=== PATIENT | female | born 1990 | race Caucasian/White ===

== ENCOUNTER 2019-02-24 13:37 | Emergency (ER) | payer SELFPAY ==
[~2019-02-24] VITALS: Ht 162.6 cm; Wt 90.7 kg
[~2019-02-24 13:37] MED LIST: CITA20TA9 PO; NAPR-243 PO; SULF1TAB38 PO; TRM50T PO
[2019-02-24] MEDS ORDERED: KETOROLAC 30 MG/ML VIAL IM ONE (14:30)
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
[2019-02-24] MEDS ORDERED: NAPR-1071 PO (14:45)
[2019-02-24] MEDS ORDERED: ACHD5005 PO (14:45)
--- OUTSIDE RECORDS SUMMARY | 2019-02-24 14:47 | XMS REPORT | Continuity of Care Document ---
Author Organization Unknown Address Unknown Allergies Active Description Code Type Severity Reaction Onset Reported/Identified Relationship to Patient Clinical Status Yes No Known Drug Allergies [id number] Drug Allergy Unknown N/A 02/02/2016 Medications There is no data. Problems Date Dx Coded Attending Type Code Diagnosis Diagnosed By 02/02/2016 MARGUERITE FAYE DO Ot R19.7 DIARRHEA, UNSPECIFIED 02/02/2016 MARGUERITE FAYE DO Ot Z01.818 ENCOUNTER FOR OTHER PREPROCEDURAL EXAMIN 02/07/2016 MARGUERITE FAYE DO Ot R10.31 RIGHT LOWER QUADRANT PAIN 02/07/2016 MARGUERITE FAYE DO Ot R19.7 DIARRHEA, UNSPECIFIED 02/08/2016 MARGUERITE FAYE DO Ot R10.31 RIGHT LOWER QUADRANT PAIN 02/08/2016 MARGUERITE FAYE DO Ot R19.7 DIARRHEA, UNSPECIFIED Procedures There is no data. Results There is no data. Encounters ACCT No. Visit Date/Time Discharge Status Pt. Type Provider Facility Loc./Unit Complaint [id number] 02/07/2016 09:50:00 02/07/2016 11:55:00 DIS Outpatient MARG[facility]E [facility] [id number] 02/02/2016 05:40:00 02/02/2016 10:06:00 DIS Outpatient MARGUERITE FAYE DO Via [facility] PREOP
--- OUTSIDE RECORDS SUMMARY | 2019-02-24 14:47 | XMS REPORT | Continuity of Care Document ---
Author Organization Unknown Address Unknown Allergies Active Description Code Type Severity Reaction Onset Reported/Identified Relationship to Patient Clinical Status Yes No Known Drug Allergies [id number] Drug Allergy Unknown N/A 02/02/2016 Medications There [...] Status Pt. Type Provider Facility Loc./Unit Complaint [id number] 02/07/2016 09:50:00 02/07/2016 11:55:00 DIS Outpatient MARGUERITE FAYE DO Via [facility] [id number] 02/02/2016 05:40:00 02/02/2016 10:06:00 DIS Outpatient MARGUERITE FAYE DO Via [facility] PREOP
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
[2019-02-24 15:44] VITALS: BP 145/98
== END 2019-02-24 15:44 | disposition home or self-care (01) ==
LOC: EDUNIT# 13:37 → ER 13:39
DX: S80.12XA Contusion of left lower leg, initial encounter (principal); S80.02XA Contusion of left knee, initial encounter; F17.200 Nicotine dependence, unspecified, uncomplicated; V86.55XA Driver of 3- or 4- wheeled all-terrain vehicle (ATV) injured in nontraffic accident, initial encounter
CPT/HCPCS: 73562; 84703

== ENCOUNTER → 2019-03-16 | Outpatient (CLI) | payer OTHER ==
[~2019-03-16] MED LIST changes: +ACHD5005 PO; +NAPR-1071 PO
--- NOTE | 2019-03-16 21:00 | Diagnostic Imaging Report ---
EXAMINATION: Magnetic resonance imaging of the left knee without intravenous contrast DATE: March 16, 2019. COMPARISON: Left knee radiographs February 24, 2019. INDICATION: 28-year-old female, left knee pain and swelling. TECHNIQUE: Multiplanar, multisequence non contrast enhanced MR imaging was accomplished. FINDINGS: MENISCI: The medial meniscus is intact. The lateral meniscus is intact. LIGAMENTS AND TENDONS: There is a complete tear of the anterior cruciate ligament. The posterior cruciate ligament is intact. There is a low-grade sprain injury of the superficial component of the medial collateral ligament. The iliotibial band, mid third lateral capsular ligament, fibular collateral ligament, biceps femoris tendon and conjoined tendon are intact. The quadriceps tendon and patella ligament are intact. JOINT: The articular cartilage surfaces are intact. There is no knee joint effusion, prominent synovitis, or intra-articular body. BONE: There is edema-like signal in the posterior aspect of the lateral tibial plateau and adjacent lateral femoral condyle as well as a smaller focal area of edema-like signal in the posterior aspect of the medial tibial plateau. There is no identified fracture line. These are compatible with bone contusions. There is also a bone contusion in the region of the femoral attachment site of the superficial component of the medial collateral ligament. BURSAE AND SOFT TISSUES: There is no Fulton's cyst. There is mild nonspecific prepatellar subcutaneous edema. IMPRESSION: 1. Complete tear of the anterior cruciate ligament. Intact posterior cruciate ligament. Low grade sprain injury of the superficial component of the medial collateral ligament complex. 2. No discretely identified meniscal tear. 3. Bone contusions of the posterior aspects of the lateral tibial plateau and medial tibial plateau as well as the lateral femoral condyle and medial femoral condyle in the region of the attachment site of the superficial component of the medial collateral ligament complex. 4. Intact articular cartilage. No knee joint effusion. Dictated by: Dictated on workstation # [id number]
== END ==
LOC: RAD 14:26
PROVIDERS: ATTEND Orthopaedic Surgery
DX: S83.512A Sprain of anterior cruciate ligament of left knee, initial encounter (principal); S83.412A Sprain of medial collateral ligament of left knee, initial encounter; S80.12XA Contusion of left lower leg, initial encounter; S70.12XA Contusion of left thigh, initial encounter
CPT/HCPCS: 73721

== ENCOUNTER 2019-08-23 16:07 | Emergency (ER) | payer OTHER ==
[~2019-08-23] VITALS: Ht 162 cm; Wt 88.5 kg
[2019-08-23] MEDS ORDERED: LIDOCAINE 1% INJ 20 ML 20 ML VIAL INJ ONE (16:30)
[2019-08-23] MEDS ORDERED: KETOROLAC 60 MG/2 ML VIAL IM ONE (16:30)
[2019-08-23] MEDS ORDERED: TRIM/SULFAMETH 160/800 (SEPTRA DS) TAB PO ONE (16:30)
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
[2019-08-23 16:57] LABS: BASOPHILS % (AUTO) 0 % (0-10); EOSINOPHILS # (AUTO) 0.1 10^3/uL (0.0-0.3); EOSINOPHILS % (AUTO) 1 % (0-10); HEMATOCRIT 36 % (35-52); HEMOGLOBIN 11.7 G/DL (11.5-16.0); LYMPHOCYTES # (AUTO) 2.9 X 10^3 (1.0-4.0); LYMPHOCYTES % (AUTO) 24 % (12-44); MEAN CORPUSCULAR HEMOGLOBIN 27 PG (25-34); MEAN CORPUSCULAR HGB CONC 32 G/DL (32-36); MEAN CORPUSCULAR VOLUME 84 FL (80-99); MEAN PLATELET VOLUME 10.4 FL (7.4-10.4); MONOCYTES # (AUTO) 0.8 X 10^3 (0.0-1.0); MONOCYTES % (AUTO) 6 % (0-12); NEUTROPHILS # (AUTO) 8.2 X 10^3 (1.8-7.8); NEUTROPHILS % (AUTO) 69 % (42-75); PLATELET COUNT 239 10^3/uL (130-400); RED CELL DISTRIBUTION WIDTH 13.7 % (10.0-14.5)
[2019-08-23] MEDS ORDERED: SULF1TAB35 PO (17:06)
[2019-08-23 17:12] VITALS: BP 127/80
== END 2019-08-23 17:12 | disposition home or self-care (01) ==
LOC: EDUNIT# 16:07 → ER 16:09
DX: N60.01 Solitary cyst of right breast (principal); F17.200 Nicotine dependence, unspecified, uncomplicated
CPT/HCPCS: 36415; 85025

== ENCOUNTER 2020-05-15 14:57 | Emergency (ER) | payer SELFPAY ==
[~2020-05-15] VITALS: Ht 173 cm; Wt 88.5 kg
[~2020-05-15 14:57] MED LIST changes: +SULF1TAB35 PO
--- OUTSIDE RECORDS SUMMARY | 2020-05-15 15:02 | XMS REPORT | Continuity of Care Document ---
Author Author [facility] Organization [facility] Address Unknown Phone Unavailable Care Team Providers Care Activities Concierge Name Role Phone ZUHAIR MENDOZA MD PP Insurance Providers Payer Name Policy Number Subscriber Name Relationship Self Pay Hemant Clark 01 Self / Same As Patient Advance Directives Directive Response Recor ded Date Advance Directives N 8:39pm Health Care Power of Transitional Care Manager N 03/19/13 8:39pm Problems No Known Problems or Medical conditions. Social History History Response Recorde d Date/Time Alcohol Use Denies Use 0 03/19/13 8:39pm Recreational Drug Use N 03/19/13 8:39pm Sexually Transmitted Disease N 03/19/13 8:39pm HIV/AIDS N 03/19/13 8:39 pm Allergies, Adverse Reactions, Alerts Allergen Type Severity Reaction Last Updated No Known Drug Allergies 01/03/12 Medications Medication Dose Units Route Sig Qty Days Trimethoprim/Sulfamethoxazole (Bactrim Ds) 1 Ea PO BID 20 Tramadol HCl (Ultram) 50 Mg PO Q4-6HOURS PRN 20 Naproxen (Naprosyn) 1 Ea ch PO TID PRN 20 Immunizations Name Given Type Date of Influenza Vaccine 07/07/11 H Response Recorded Date/Time Status not known Unknown Results Test Date Result Interp. Ref. Range Ur Tricyclic Antidepressants Screen February 22, 2013 10:06pm NEGATIVE - Urine Amorphous Sediment February 22 3 10:06pm FEW ERNESTO URATES /LPF H - Urine Amphetamines Screen February 22 10:06pm NEGATIVE - Urine Bacteria February 22, 2013 10:06pm MODERATE /HPF H - Urine Barbiturates Screen February 22 10:06pm NEGATIVE - Urine Benzodiazepines Screen February 22, 2013 10:06pm NEGATIVE - Urine Bilirubin February 22, 2013 10:06pm NEGATIVE - Urine Casts February 22, 2013 10:06pm NONE /LPF - Urine Clarity February 22, 2013 10:06pm CLEAR - Urine Cocaine Screen February 22, 2013 10:06pm NEGATIVE - Urine Color February 22, 2013 10:06pm YELLOW - Urine Crystals February 22, 2013 10:06pm NONE /LPF - Urine Culture Indicated February 22, 2013 10:06pm YES - Urine Glucose (UA) February 22, 2013 10:06pm NEGATIVE - Urine Ketones February 22, 2013 10:06pm NEGATIVE - Urine Leukocyte Esterase February 22, 201 3 10:06pm TRACE H - Urine Methamphetamines Screen February 10:06pm NEGATIVE - Urine Mucus February 22, 2013 10:06pm NEGATIVE /LPF - Urine Nitrite February 22, 2013 10:06pm NEGATIVE - Urine Opiates Screen February 22, 2013 10:06pm NEGATIVE - Urine Phencyclidine Screen February 22, 2 013 10:06pm NEGATIVE - Urine Propoxyphene Screen February 22 13 10:06pm NEGATIVE - Urine Protein February 22, 2013 10:06pm NEGATIVE - Urine RBC February 22, 2013 10:06pm NONE /HPF - Urine Specific [place] February 22, 2013 10:06p m 1.015 L - Urine Squamous Epithelial Cells February 22, 2013 10:06pm 5-10 /HPF - Urine Urobilinogen February 22, 2013 10:06pm NORMAL MG/DL - Urine WBC February 22, 2013 10:06pm 2-5 /HPF - Urine pH February 22, 2013 10:06pm 7 - Urine Oxycodone Screen February 22, 2013 10:06p m NEGATIVE - Urine Methadone Screen February 22, 2013 10:06p m NEGATIVE - Urine Cannabinoids Screen February 22 13 10:06pm NEGATIVE - Urine Buprenorphine February 22, 2013 10:06pm NEGATIVE - Urine RBC (Auto) February 22, 2013 10:06pm NEGATIVE - Procedures Procedure Code Date Urine Culture 02/22/13 Encounters Encounter Location Date/ Time Departed Emergency Room [facility] 03/19/13 8:36pm
--- OUTSIDE RECORDS SUMMARY | 2020-05-15 15:02 | XMS REPORT | Continuity of Care Document ---
Author Author [facility] Organization [facility] Address Unknown Phone Unavailable Care Team Providers Care Gymnastic Coach Name Role Phone ZUHAIR MENDOZA MD PP Insurance Providers Payer Name Policy Number Subscriber Name Relationship Self Pay Karin Clark 01 Self / Same As Patient Advance Directives Directive Response Recor ded Date Advance Directives N 10:42pm Health Care Power of Tree And Shrub Technician N 02/17/13 10:42pm Problems No Known Problems or Medical conditions. Social History History Response Recorde d Date/Time Alcohol Use Occasionally Uses 02/17/13 10:42pm Recreational Drug Use N 02/17/13 10:42pm Allergies, Adverse Reactions, Alerts Allergen Type Severity Reaction Last Updated No Known Drug Allergies 01/03/12 Medications Medication Dose Units Route Sig Qty Days Tramadol HCl (Ultram) 50 Mg PO Q4-6HOURS PRN 20 Naproxen (Naprosyn) 1 Ea ch PO TID PRN 20 Immunizations Name Given Type Date of Influenza Vaccine 07/07/11 H Response Recorded Date/Time Status not known Unknown Results No Known Relevant Diagnostic Tests, Laboratory Data and/or Discharge Summary. Encounters Encounter Location Date/ Time Departed Emergency Room [facility] IS 02/17/13 10:37pm
--- OUTSIDE RECORDS SUMMARY | 2020-05-15 15:02 | XMS REPORT | Continuity of Care Document ---
Author Author [facility] Organization [facility] Address Unknown Phone Unavailable Care Team Providers Care Senior Peoplesoft Developer Name Role Phone ZUHAIR MENDOZA MD PP Insurance Providers Payer Name Policy Number Subscriber Name Relationship Self Pay Karin Clark 01 Self / Same As Patient Advance Directives Directive Response Recor ded Date Advance Directives N 6:27pm Health Care Power of Clammer N 07/20/13 6:27pm Problems No Known Problems or Medical conditions. Social History History Response Recorde d Date/Time Alcohol Use Occasionally Uses 07/20/13 6:27pm Recreational Drug Use N 07/20/13 6:27pm Sexually Transmitted Disease N 07/20/13 6:27pm HIV/AIDS N 07/20/13 6:27 pm Allergies, Adverse Reactions, Alerts Allergen Type Severity Reaction Last Updated No Known Drug Allergies 01/03/12 Medications Medication Dose Units Route Sig Qty Days No Active Prescriptions or Reported Medications Trimethoprim/Sulfamethoxazole (Bactrim Ds) 1 Ea PO BID 20 Tramadol HCl (Ultram) 50 Mg PO Q4-6HOURS PRN 20 Naproxen (Naprosyn) 1 Ea ch PO TID PRN 20 Immunizations Name Given Type Date of Influenza Vaccine 07/07/11 H Response Recorded Date/Time Status not known Unknown Results No Known Relevant Diagnostic Tests, Laboratory Data and/or Discharge Summary. Encounters Encounter Location Date/ Time Departed Emergency Room [facility] 07/20/13 6:18pm
--- OUTSIDE RECORDS SUMMARY | 2020-05-15 15:02 | XMS REPORT | Continuity of Care Document ---
Author Author [facility] Organization [facility] Address Unknown Phone Unavailable Care Team Providers Care Corporate Associate Attorney Name Role Phone ZUHAIR MENDOZA MD PP Insurance Providers Payer Name Policy Number Subscriber Name Relationship Self Pay Karin Clark 01 Self / Same As Patient Advance Directives Directive Response Recor ded Date Advance Directives N 10:42pm Health Care Power of Molder Operator N 02/17/13 10:42pm Problems No Known Problems [...] Encounter Location Date/ Time Departed Emergency Room [facility] IS 02/17/13 10:37pm
--- OUTSIDE RECORDS SUMMARY | 2020-05-15 15:03 | XMS REPORT | Continuity of Care Document ---
Author Author [facility] Organization [facility] Address Unknown Phone Unavailable Care Team Providers Care Human Performance Professor Name Role Phone ZUHAIR MENDOZA MD PP Insurance Providers Payer Name Policy Number Subscriber Name Relationship Self Pay Karin Clark 01 Self / Same As Patient Advance Directives Directive Response Recor ded Date Advance Directives N 10:42pm Health Care Power of Manager Sound N 02/17/13 10:42pm Problems No Known Problems [...] Type Date of Influenza Vaccine 07/07/11 H DTaP 02/22/13 A Response Recorded Date/Time Status not known Unknown Results No Known Relevant Diagnostic Tests, Laboratory Data and/or Discharge Summary. Encounters Encounter Location Date/ Time Departed Emergency Room [facility] 02/22/13 8:20pm
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
[2020-05-15] MEDS ORDERED: KETOROLAC 30 MG/ML VIAL IM ONE (16:15)
[2020-05-15] MEDS ORDERED: CYCL10TA9 PO (17:13)
[2020-05-15] MEDS ORDERED: PRD20T PO (17:13)
--- NOTE | 2020-05-15 17:13 | ED Back Pain ---
General Chief Complaint: Back Problems Stated Complaint: BACK PAIN Nursing Triage Note: C/O LOWER BACK PAIN STARTING LAST NIGHT Nursing Sepsis Screen: No Definite Risk Source of Information: Patient Exam Limitations: No Limitations History of Present Illness Date Seen by Provider: May 15, 2020 Time Seen by Provider: 05:57 Initial Comments This 30-year-old young lady presents to the emergency room with pain in the low er lumbar region and right SI joint region. She had a remote injury to her back in 2013 and has had a few episodes of pain exacerbation since then. Pain became severe yesterday. She has changed her sleeping patterns and pillows recently and wonders if that contributed. She denies any lower extremity weakness, paresthesias, saddle paresthesia, or bowel or bladder dysfunction. She has tried icy hot patches without relief. She rates her pain as a 5 when lying down and a 10 when standing up. Last menstrual period was 5 days ago and she denies . Allergies and Home Medications Allergies Coded Allergies: No Known Drug Allergies (Unverified , 02/24/19) Home Medications Cyclobenzaprine HCl 10 Mg Tablet, 10 MG PO Q8H PRN for SPASMS Prescribed by: PARIS GARCIA on 05/15/201712 Prednisone 20 Mg Tab, 20 MG PO DAILY Prescribed by: PARIS GARCIA on 05/15/20 171 Sulfamethoxazole/Trimethoprim 1 Each Tablet, 1 EACH PO BID WITH MEALS Prescribed by: RUDY PARR on 08/23/19 1706 Patient Home Medication List Home Medication List Reviewed: Yes Review of Systems Constitutional: no symptoms reported EENTM: no symptoms reported Respiratory: no symptoms reported Cardiovascular: no symptoms reported Gastrointestinal: no symptoms reported : No Musculoskeletal: see HPI Skin: no symptoms reported Psychiatric/Neurological: No Symptoms Reported Past Rahtoup-Gxghau-Powjjs Hx Past Med/Social Hx: Reviewed Nursing Past Med/Soc Hx Patient Social History Alcohol Use: Denies Use Recreational Drug Use: No Recent Foreign Travel: No Contact w/Someone Who Travel: No Recent Infectious Disease Expo: No Recent Hopitalizations: No Immunizations Up To Date Tetanus Booster (TDap): Less than 5yrs Date of Influenza Vaccine: Jul 07, 2011 Seasonal Allergies Seasonal Allergies: Yes Past Medical History Surgeries: Yes Breast, Orthopedic Respiratory: No Cardiac: No Neurological: No Female Reproductive Disorders: Denies Sexually Transmitted Disease: No HIV/AIDS: No Gastrointestinal: No Musculoskeletal: No Endocrine: No Cancer: No Psychosocial: No Integumentary: No Blood Disorders: No Physical Exam Vital Signs Vital Signs - First Documented 05/15/20 15:02 Temp 36.7 Pulse 99 Resp 18 B/P (MAP) 107/75 (86) Pulse Ox 97 Capillary Refill : Less Than 3 Seconds Height, Weight, BMI Height: 5'4.00" Weight: 200lbs. oz. 90.063770zx; 29.00 BMI Method:Stated General Appearance: No Apparent Distress, WD/WN HEENT: PERRL/EOMI, Normal ENT Inspection Neck: Normal Inspection Cardiovascular: Regular Rate, Rhythm, No Edema, No Murmur Respiratory: Lungs Clear, Normal Breath Sounds, No Accessory Muscle Use, No Respiratory Distress Gastrointestinal: Non Tender, Soft Back: Normal Inspection, Other (Tenderness around the L5-S1 area and right SI joint region) Neurologic/Psychiatric: Alert, Oriented x3, No Motor/Sensory Deficits, Normal Mood/Affect, e commerce retailer II-XII Norm as Tested Skin: Normal Color, Warm/Dry Progress/Results/Core Measures Results/Orders My Orders Orders - PARIS EDUARDO MD Ketorolac Injection (Toradol Injection) (05/15/20 16:15) Medications Given in ED Vital Signs/I&O 05/15/20 05/15/20 15:02 17:15 Temp 36.7 36.7 Pulse 99 99 Resp 18 18 B/P (MAP) 107/75 (86) 107/75 (86) Pulse Ox 97 97 Blood Pressure Mean: 86 Progress Progress Note : Progress Note Patient received toradol injection with significant relief. See discharge instructions. Departure Impression Primary Impression: Pain of right sacroiliac joint Disposition: HOME, SELF-CARE Condition: Improved Departure-Patient Inst. Decision time for Depature: 16:50 Referrals: NO,LOCAL PHYSICIAN (PCP/Family) Primary Care Physician Patient Instructions: Sacroiliac Joint Pain Add. Discharge Instructions: Try to manage your pain with ibuprofen up to 600 mg every 6 hours and Tylenol (acetaminophen) up to 1000 mg every 6 hours as needed. Avoid strenuous activity and heavy lifting until your pain has been resolved for a few days. Gentle stretching, especially of the calves and hamstrings may help reduce strain on your pelvis and help relieve pain. Follow-up with your primary care provider. Other nonmedicinal therapies may be discussed such as physical therapy, chiropractic manipulation, etc. If your pain is still severe tomorrow, you may start the steroids for further anti-inflammatory therapy and the cyclobenzaprine may be used for muscle strain or spasms. Return to care if you have worsening symptoms, especially if he develops true weakness in your legs, numbness in your legs, numbness in your groin, or difficulty controlling your bowels or bladder. All discharge instructions reviewed with patient and/or family. Voiced understanding. Scripts Cyclobenzaprine HCl (Cyclobenzaprine HCl) 10 Mg Tablet 10 MG PO Q8H PRN for SPASMS, #10 TAB 0 Refills Prov: PARIS EDUARDO MD 05/15/20 Prednisone (Prednisone) 20 Mg Tab 20 MG PO DAILY, #4 TAB 0 Refills Prov: PARIS EDUARDO MD 05/15/20 PARIS EDUARDO MD May 15, 2020 17:13
[2020-05-15 17:15] VITALS: BP 107/75
== END 2020-05-15 17:15 | disposition home or self-care (01) ==
LOC: EDUNIT# 14:57 → ER 14:58
DX: M53.3 Sacrococcygeal disorders, not elsewhere classified (principal)
CPT/HCPCS: 99281

== ENCOUNTER 2021-05-13 23:18 | Outpatient (CLI) | payer MEDICAID ==
[~2021-05-13] VITALS: Ht 160.2 cm; Wt 93.3 kg
[~2021-05-13 23:18] MED LIST changes: +CYCL10TA9 PO; +PRD20T PO; -SULF1TAB35 PO
[2021-05-13 23:30] VITALS: BP 114/66
--- NOTE | 2021-05-15 08:06 | Physician Query-Final Dx ---
Clinic Account Progress/Dx Physician Query: Please give diagnosis Please include # weeks gestation Date of Service May 13, 2021 at 23:18 MARIMAR MEYER May 15, 2021 08:06
== END 2021-05-14 00:10 ==
LOC: LDRP 23:18 → WSo 23:18
PROVIDERS: ATTEND Obstetrics & Gynecology
DX: O42.913 Preterm premature rupture of membranes, unspecified as to length of time between rupture and onset of labor, third trimester (principal); Z3A.31 31 weeks gestation of pregnancy
CPT/HCPCS: 99213

== ENCOUNTER 2021-06-02 17:45 | Outpatient (CLI) | payer MEDICAID ==
[~2021-06-02] VITALS: Ht 160 cm; Wt 95.6 kg
[2021-06-02 18:26] LABS: BILIRUBIN,URINE NEGATIVE (NEGATIVE); CLARITY,URINE SL CLOUDY; COLOR,URINE YELLOW; GLUCOSE, URINE (UA) NEGATIVE (NEGATIVE); KETONES,URINE NEGATIVE (NEGATIVE); LEUKOCYTE ESTERASE ,URINE NEGATIVE (NEGATIVE); NITRITE,URINE NEGATIVE (NEGATIVE); PH,URINE 6.5 (5-9); PROTEIN,URINE NEGATIVE (NEGATIVE)
[2021-06-02 18:32] LABS: AMORPHOUS SEDIMENT,UR MOD AMOR URATES /LPF; BACTERIA,URINE TRACE /HPF
[2021-06-02 18:35] VITALS: BP 112/68
[2021-06-02 18:36] VITALS: BP 122/68
[2021-06-02] MEDS ORDERED: D5 LR IV SOLUTION 1,000 ML IV SCH (19:30)
[2021-06-02 21:00] VITALS: BP 120/70
--- NOTE | 2021-06-05 10:13 | Physician Query-Final Dx ---
Clinic Account Progress/Dx Physician Query: Please give diagnosis Please include # weeks gestation Date of Service Jun 02, 2021 at 17:45 MARIMAR MEYER Jun 05, 2021 10:13
== END 2021-06-02 21:00 | disposition home or self-care (01) ==
LOC: LDRP 17:45 → WSo 17:45
PROVIDERS: ATTEND Obstetrics & Gynecology
DX: O26.899 Other specified pregnancy related conditions, unspecified trimester (principal); R10.9 Unspecified abdominal pain; Z3A.00 Weeks of gestation of pregnancy not specified
CPT/HCPCS: 81000; 87088

== ENCOUNTER 2021-06-26 07:00 | Inpatient (IN) | payer MEDICAID ==
[2021-06-26] VITALS (34 sets, daily range): BP systolic 97–137; BP diastolic 47–88
[~2021-06-26] VITALS: Ht 160 cm; Wt 96.2 kg
--- OUTSIDE RECORDS SUMMARY | 2021-06-26 07:14 | XMS REPORT ---
Author Author [facility] Address Unknown Phone Unavailable Care Team Providers Care Felt Tipping Machine Tender Name Role Phone CARLINEPATEL Unavailable PROBLEMS No Information ALLERGIES No Known Allergies ENCOUNTERS from 1991 to 2021-06-05 Encounter Location Date Provider Diagnosis [facility] [address] [facility] [id number] [place] [address] Dec, PATEL CROWLEY IMMUNIZATIONS Vaccine Route Administration Date Status TORADOL (IM) 60 MG/2ML (UP TO 15 MG) IM Intramuscular April 11 020 Administered SOCIAL HISTORY Sex Assigned At : Social History Observation Description Sex Assigned At Unknown Alcohol Screen (Audit-C) Question Answer Notes Did you have a drink containing alcohol in the past year? No Points 0 Interpretation Negative Cessation Question Answer Notes Date Tobacco Cessation Provided: 04/11/2020 PHQ2 Question Answer Notes In the last 2 weeks, how often have you had little interest or pleasure in doing things? Not at all In the last 2 weeks, how often have you been feeling down, depressed, or hopeless? Not at all Total PHQ2 Score 0 REASON FOR REFERRAL No Information VITAL SIGNS No information MEDICATIONS Medication SIG (Take, Route, Frequency, Duration) Notes Start Da te End Date Status Cephalexin 500 MG 1 capsule Orally Four times a day for 7 days Apr, Active Vitamin Active Amoxicillin-Pot Clavulanate 875-125 MG 1 tablet Orally every 12 hrs for 10 day(s) Apr, Active PROCEDURES No Information RESULTS No Results REASON FOR VISIT No Information MEDICAL (GENERAL) HISTORY Type Description Date Medical History depression Surgical History ACL repair left knee 05/2019 Goals Section No Information Health Concerns No Information MEDICAL EQUIPMENT No Information MENTAL STATUS No Information FUNCTIONAL STATUS No Information ASSESSMENTS No Information PLAN OF TREATMENT Medication Medication Name Sig Start Date Stop Date Cephalexin 500 MG 1 capsule Orally Four times a day for 7 days 2 0 Apr, 2021 Amoxicillin-Pot Clavulanate 875-125 MG 1 tablet Orally every 12 hrs for 10 day(s) 13 Apr, 2021 Insurance Providers Payer Name Payer Address Payer Phone Insured Name Patient Relati onship to Insured Coverage Start Date Coverage End Date [address] [facility] [phone] Karin Silva self
[2021-06-26] MEDS ORDERED: D5 LR IV SOLUTION 1,000 ML IV ONE (08:11)
[2021-06-26] MEDS ORDERED: OXYTOCIN PRE-MIX DRIP 500 ML IV SCH (08:15)
[2021-06-26 08:16] LABS: BASOPHILS % (AUTO) 0 % (0-10); EOSINOPHILS # (AUTO) 0.1 10^3/uL (0.0-0.3); EOSINOPHILS % (AUTO) 1 % (0-10); HEMATOCRIT 34 % (35-52); LYMPHOCYTES # (AUTO) 1.7 10^3/uL (1.0-4.0); LYMPHOCYTES % (AUTO) 19 % (12-44); MEAN CORPUSCULAR HEMOGLOBIN 29 pg (25-34); MEAN CORPUSCULAR HGB CONC 33 g/dL (32-36); MEAN CORPUSCULAR VOLUME 89 fL (80-99); MEAN PLATELET VOLUME 11.6 fL (9.0-12.2); MONOCYTES # (AUTO) 0.5 10^3/uL (0.0-1.0); MONOCYTES % (AUTO) 5 % (0-12); NEUTROPHILS # (AUTO) 6.7 10^3/uL (1.8-7.8); NEUTROPHILS % (AUTO) 74 % (42-75); PLATELET COUNT 194 10^3/uL (130-400)
[2021-06-26] MEDS: D5 LR IV SOLUTION 1,000 ML IV SCH ×2 (08:32→15:15)
[2021-06-26] MEDS ORDERED: BUTORPHANOL INJ 2 MG/ML (STADOL) VIAL IV ONE (11:15)
[2021-06-26] MEDS ORDERED: BUTORPHANOL INJ 2 MG/ML (STADOL) VIAL IV PRN (12:00)
[2021-06-26] MEDS ORDERED: PEDI1TAB35 PO (13:04)
[2021-06-26] MEDS ORDERED: BUTORPHANOL INJ 2 MG/ML (STADOL) VIAL ONE (14:20)
[2021-06-26] MEDS ORDERED: CITRIC ACID/SOB CIT (BICITRA) 30 ML UDC PO ONE (15:00)
[2021-06-26] MEDS ORDERED: METOCLOPRAMIDE INJ 10 MG/2 ML (REGLAN) IV ONE (15:00)
[2021-06-26] MEDS ORDERED: metroNIDAZOLE 500MG/100ML IVPB 100 ML IV ONE ×2 (15:00→15:30)
[2021-06-26] MEDS ORDERED: FAMOTIDINE 20MG/2ML IV (PEPCID) IV ONE (15:00)
[2021-06-26] MEDS ORDERED: LACTATED RINGERS 1,000 ML IV PRN ×2 (15:00)
[2021-06-26] MEDS ORDERED: CATHETER FLUSH 10 ML SYR IV PRN (15:00)
[2021-06-26] MEDS ORDERED: ceFAZolin 2 GM IV Premixed 50 ML IV ONE ×2 (15:00→16:15)
--- NOTE | 2021-06-26 15:08 | Progress Note ---
Standard Progress Note Progress Notes/Assess & Plan Date Seen by a Provider: Jun 26, 2021 Time Seen by a Provider: 15:05 Progress/Assessment & Plan Patient started on Pitocin about 8 AM. She made little or no progress through noon to 1:00. She continued on the Pitocin until approximately 230 at which point she decided she no longer wanted to be on the Pitocin. She was specifically requesting a . I did discuss with the patient that labor for first child in the latent phase can take 12 to 16 hours. She states she is unwilling to be subjected to contractions for that length of time. She is uncomfortable and discouraged. She did agree to continue on Pitocin until the rate has been up into the 30s+ milliliters per minute range and if she continues to failure to demonstrate progress then we would stop the Pitocin and proceed with . At this point the Pitocin has been discontinued. We are allowing time for the uterus to rest and recover and then we will proceed with delivery about 4 to 4:30 PM Vital Signs Date Time Temp Pulse Resp B/P (MAP) Pulse Ox O2 Delivery O2 Flow Rate FiO2 06/26/21 08:33 36.4 88 18 100 Room Air Patient's vital signs are stable she is afebrile Physical exam is unchanged. Pelvic exam per the labor delivery nurse shows a cervix 1 cm dilated 68% effaced with no change throughout the day Assessment and plan 38-week with history of gestational diabetes and failure to make progress in labor. Patient has specifically requested delivery at this point I do not think that is inappropriate we will stop her Pitocin and proceed with about 430 today JOAQUIN SANTOS MD Jun 26, 2021 15:08
[2021-06-26] MEDS ORDERED: ceFAZolin INJECTION 2,000 MG in WATER (STERILE) FOR INJECTION 10 ML IV ONE (15:30)
[2021-06-26] MEDS ORDERED: ceFAZolin 2 GM IV Premixed 50 ML ONE (16:10)
[2021-06-26] MEDS ORDERED: fentaNYL INJ 100 MCG/2 ML AMP ONE (16:16)
[2021-06-26] MEDS ORDERED: KETAMINE SYRINGE 50 MG/5 ML SYRINGE ONE (16:16)
[2021-06-26] MEDS ORDERED: KETOROLAC 30 MG/ML VIAL ONE (17:29)
[2021-06-26] MEDS ORDERED: OXYTOCIN PRE-MIX DRIP 500 ML IV ONE (17:37)
[2021-06-26] MEDS ORDERED: PHENYLEPHRINE 100 MCG/ML 10 ML (ANESTHESIA) SYR ONE (17:37)
[2021-06-26] MEDS ORDERED: BUPIVACAINE 0.5% 30 ML (SENSORCAINE) VIAL ONE (17:47)
[2021-06-26] MEDS ORDERED: D5 LR IV SOLUTION 1,000 ML IV SCH (19:15)
[2021-06-26] MEDS ORDERED: TETANUS,DIPTH,PERTUSS P/F (BOOSTRIX) 0.5 ML VIAL IM ONE (19:15)
[2021-06-26] MEDS ORDERED: fentaNYL INJ 100 MCG/2 ML AMP IVP PRN (19:15)
[2021-06-26] MEDS ORDERED: MEASLES,MUMPS,RUBELLA 1 EA INJ SC ONE (19:15)
[2021-06-26] MEDS ORDERED: ONDANSETRON 4 MG/2 ML (SDV) Z0FRAN IVP PRN (19:15)
[2021-06-26] MEDS ORDERED: DOCUSATE SODIUM 100 MG (COLACE) CAP PO SCH (21:00)
[2021-06-26] MEDS: KETOROLAC 30 MG/ML VIAL IVP SCH (21:05)
[2021-06-26] MEDS: DOCUSATE SODIUM 100 MG (COLACE) CAP PO SCH (21:05)
[2021-06-26] MEDS: oxyCODONE/APAP 10/325MG (PERCOCET 10) TABLET PO PRN (21:14)
[2021-06-26] MEDS: OXYTOCIN PRE-MIX DRIP 500 ML IV SCH ×2 (21:20→23:17)
[2021-06-27 00:35] VITALS: BP 108/62
[2021-06-27] MEDS: KETOROLAC 30 MG/ML VIAL IVP SCH (04:24)
[2021-06-27 04:25] VITALS: BP 112/61
[2021-06-27] MEDS: oxyCODONE/APAP 10/325MG (PERCOCET 10) TABLET PO PRN ×3 (04:25→23:40)
--- NOTE | 2021-06-27 07:54 | Anesthesia-Regional Post-Op ---
Regional Patient Condition Mental Status: Alert, Oriented x3 Circulation: Same as Pre-Op Headache: Absent Sensation: Full Recovery Motor Block: Absent Post Op Complications Complications None Follow Up Care/Instructions Patient Instructions None needed. Anesthesia/Patient Condition Patient is doing well, no complaints, stable vital signs, no apparent adverse anesthesia problems. No complications reported per nursing. [place] [facility] [place]: No BRIDGETT QUINTERO CRNA Jun 27, 2021 07:54
--- NOTE | 2021-06-27 08:28 | Progress Note ---
Standard Progress Note Progress Notes/Assess & Plan Date Seen by a Provider: Jun 27, 2021 Time Seen by a Provider: 08:27 Progress/Assessment & Plan Patient started on Pitocin about 8 AM. She made little or no progress through noon to 1:00. She continued on the Pitocin until approximately 230 at which point she decided she no longer wanted to be on the Pitocin. She was specifically requesting a . I did discuss with the patient that labor for first child in the latent phase can take 12 to 16 hours. She states she is unwilling to be subjected to contractions for that length of time. She is uncomfortable and discouraged. She did agree to continue on Pitocin until the rate has been up into the 30s+ milliliters per minute range and if she continues to failure to demonstrate progress then we would stop the Pitocin and proceed with . At this point the Pitocin has been discontinued. We are allowing time for the uterus to rest and recover and then we will proceed with delivery about 4 to 4:30 PM Vital Signs Date Time Temp Pulse Resp B/P (MAP) Pulse Ox O2 Delivery O2 Flow Rate FiO2 06/26/21 08:33 36.4 88 18 100 Room Air Patient's vital signs are stable she is afebrile Physical exam is unchanged. Pelvic exam per the labor delivery nurse shows a cervix 1 cm dilated 68% effaced with no change throughout the day Assessment and plan 38-week with history of gestational diabetes and failure to make progress in labor. Patient has specifically requested delivery at this point I do not think that is inappropriate we will stop her Pitocin and proceed with about 430 today June 27, 2021 Patient is without complaint. She is ambulating, voiding, tolerating oral intake well has good pain control. Vital Signs Date Time Temp Pulse Resp B/P (MAP) Pulse Ox O2 Delivery O2 Flow Rate FiO2 06/27/21 04:25 37.0 78 18 112/61 (78) 99 Room Air 06/27/21 00:35 36.6 92 18 108/62 (77) 98 Room Air 06/26/21 21:00 37.0 82 18 104/55 (71) 99 Room Air 06/26/21 18:47 Room Air 06/26/21 18:47 36.1 13 105/82 (90) 100 Room Air 06/26/21 18:36 36.0 18 97/80 (86) 100 Room Air 06/26/21 18:35 Room Air 06/26/21 18:27 36.1 16 102/69 (80) 100 Room Air 06/26/21 18:20 Room Air 06/26/21 18:10 36.1 14 102/47 (65) 100 Room Air 06/26/21 18:05 Room Air 06/26/21 17:54 35.9 18 107/66 (80) 100 Room Air 06/26/21 17:50 Room Air 06/26/21 16:40 36.4 89 18 126/77 (93) Room Air 06/26/21 16:20 78 18 106/69 (81) Room Air 06/26/21 16:05 81 18 106/63 (77) Room Air 06/26/21 15:50 68 18 110/67 (81) Room Air 06/26/21 15:36 87 18 103/62 (76) Room Air 06/26/21 15:24 36.5 93 18 102/68 (79) Room Air 06/26/21 15:05 85 18 103/60 (74) Room Air 06/26/21 14:50 36.7 82 18 108/61 (77) Room Air 06/26/21 13:51 70 18 119/73 (88) Room Air 06/26/21 13:36 84 18 133/88 (103) Room Air 06/26/21 13:21 85 18 130/86 (101) Room Air 06/26/21 13:05 36.0 77 18 129/77 (94) Room Air 06/26/21 12:50 75 18 128/71 (90) Room Air 06/26/21 12:20 84 18 112/71 (85) Room Air 06/26/21 11:51 80 18 136/86 (103) Room Air 06/26/21 11:36 70 18 137/85 (102) Room Air 06/26/21 11:22 80 18 125/70 (88) Room Air 06/26/21 10:50 83 18 111/66 (81) Room Air 06/26/21 10:42 91 18 112/63 (79) Room Air 06/26/21 10:20 82 18 115/80 (92) Room Air 06/26/21 10:16 36.1 06/26/21 10:06 87 18 112/71 (85) Room Air 06/26/21 09:52 76 18 118/69 (85) Room Air 06/26/21 09:36 96 18 125/73 (90) Room Air 06/26/21 09:21 85 18 131/73 (92) Room Air 06/26/21 09:05 81 18 121/71 (88) Room Air 06/26/21 08:51 81 18 120/80 (93) Room Air 06/26/21 08:34 36.4 88 18 122/76 (91) Room Air 06/26/21 08:33 36.4 88 18 100 Room Air I & O 06/27/21 07:00 Intake Total 910 ml Output Total 550 ml Balance 360 ml Vital signs are stable. Patient is afebrile. The abdomen is benign. The surgical incision is clean dry and intact. Extremities show no clubbing cyanosis. There is no Homans' sign. Assessment and plan Postoperative day #1 status post primary delivery at 38 weeks gestation due to failure to progress. Patient is doing well and will have routine convalescent care JOAQUIN SANTOS MD Jun 27, 2021 08:28
[2021-06-27] MEDS ORDERED: OXYC1TAB12 PO (08:29)
[2021-06-27] MEDS ORDERED: IBUP-1780 PO (08:29)
[2021-06-27] MEDS ORDERED: DCS100C PO (08:29)
--- NOTE | 2021-06-27 08:30 | Discharge Inst-Surgical ---
Discharge Inst-Surgical Depart Medication/Instructions New, Converted or Re-Newed RX: Transmitted to Pharmacy Consults/Follow Up Patient Instructions: As direct Orders & Referrals Follow Up Appt: RTC 1 week for incision check. Call to make follow up appt. for patient in 4 weeks. Wound Care: Remove gordy, apply benzoin and steri strips. Activity Per routine post instructions. Diet as tolerated Patient may shower or tub bathe as desired. Continue home meds Activity Activity as Tolerated: No Diet Discharge Diet: No Restrictions JOAQUIN SANTOS MD Jun 27, 2021 08:30
[2021-06-27] MEDS ORDERED: IBUPROFEN 800 MG (MOTRIN) TAB PO ONE (09:54)
[2021-06-27] MEDS: IBUPROFEN 800 MG (MOTRIN) TAB PO SCH ×3 (09:58→21:11)
[2021-06-27] MEDS: DOCUSATE SODIUM 100 MG (COLACE) CAP PO SCH ×2 (09:58→21:11)
[2021-06-27 10:00] VITALS: BP 108/65
--- NOTE | 2021-06-27 13:58 | OPERATIVE REPORT ---
DATE OF SERVICE: 06/27/2021 PREOPERATIVE DIAGNOSIS: Term with gestational diabetes with failure to progress. POSTOPERATIVE DIAGNOSIS: Term with gestational diabetes with failure to progress. OPERATIVE PROCEDURE: Primary low transverse delivery of a viable female with Apgars of 8 and 9 at 1 and 5 minutes respectively, weight of 6 pounds 9 ounces. time of 17:23 and a cord blood pH of 7.32. OPERATIVE DESCRIPTION: With the patient in the supine position under satisfactory spinal analgesia, the patient was prepped and draped in the usual fashion for abdominal surgery. Delgado catheter was placed in the urinary bladder. A Pfannenstiel incision was made through skin with scalpel, the patient's abdomen entered in the usual manner. Bladder retractor placed in position, clean scalpel used to make a 4 cm hysterotomy incision transversely across the lower uterine segment that was extended bluntly. Clear fluid was released on hysterotomy. West forceps were applied to facilitate the delivery of a vigorous viable female . Infant had Apgars and stats as noted above. The infant was bulb suctioned on delivery of the head and again on completion of delivery. Umbilical cord was doubly clamped and cut and the infant passed to the pediatric nurse in attendance for delivery. Cord bloods were obtained. Placenta delivered spontaneously Arzola. It was normal with 3-vessel cord. The uterus was exteriorized and interior wiped clean with a wet laparotomy sponge. Uterine incision closed with a running locked suture of 2-0 Vicryl. Hemostasis was relatively satisfactory with the uterus was quite boggy. In order to prevent persistent bleeding, a modified B-Yeung suture was placed using 2-0 chromic sutures. This compressed the uterus nicely. The uterus was now returned to abdominal cavity. All blood clot and debris removed from the abdominal cavity. With sponge and needle counts correct, hemostasis assured. Anterior peritoneum was closed with running suture of 2-0 Vicryl. Rectus muscles were closed with that suture as well. The rectus fascia was closed with 2-0 Vicryl, subcutaneous tissue was closed with 2-0 Vicryl and the skin was stapled. Sponge and needle counts were correct on completion of the procedure. Blood loss was around 500 mL. The patient tolerated the procedure well and was transferred to recovery room in stable condition. The infant had been taken stable to the full term nursery under the care of the pediatric nurse. Job ID: [id number] DocumentID: [id number] Dictated Date: 06/27/2021 08:39:50 Fruit Loader Date: 06/27/2021 13:57:34 Dictated By: JOAQUIN SANTOS MD
[2021-06-27 14:16] VITALS: BP 109/56
[2021-06-27 16:02] VITALS: BP 110/63
[2021-06-27] MEDS: SIMETHICONE 80 MG (MYLICON) CHEW PO SCH ×2 (17:12→23:40)
[2021-06-27 21:11] VITALS: BP 113/59
[2021-06-28 04:44] VITALS: BP 114/72
[2021-06-28] MEDS: IBUPROFEN 800 MG (MOTRIN) TAB PO SCH (04:44)
[2021-06-28] MEDS: DOCUSATE SODIUM 100 MG (COLACE) CAP PO SCH (08:21)
[2021-06-28] MEDS: oxyCODONE/APAP 10/325MG (PERCOCET 10) TABLET PO PRN (08:21)
--- NOTE | 2021-06-28 08:25 | Progress Note ---
Standard Progress Note Progress Notes/Assess & Plan Date Seen by a Provider: Jun 28, 2021 Time Seen by a Provider: 08:00 Progress/Assessment & Plan Patient started on Pitocin about 8 AM. She made little or no progress through noon to 1:00. She continued on the Pitocin until approximately 230 at which point she decided she no longer wanted to be on the Pitocin. She was specifically requesting a . I did discuss with the patient that labor for first child in the latent phase can take 12 to 16 hours. She states she is unwilling to be subjected to contractions for that length of time. She is uncomfortable and discouraged. She did agree to continue on Pitocin until the rate has been up into the 30s+ milliliters per minute range and if she continues to failure to demonstrate progress then we would stop the Pitocin and proceed with . At this point the Pitocin has been discontinued. We are allowing time for the uterus to rest and recover and then we will proceed with delivery about 4 to 4:30 PM Vital Signs Date Time Temp Pulse Resp B/P (MAP) Pulse Ox O2 Delivery O2 Flow Rate FiO2 06/26/21 08:33 36.4 88 18 100 Room Air Patient's vital signs are stable she is afebrile Physical exam is unchanged. Pelvic exam per the labor delivery nurse shows a cervix 1 cm dilated 68% effaced with no change throughout the day Assessment and plan 38-week with history of gestational diabetes and failure to make progress in labor. Patient has specifically requested delivery at this point I do not think that is inappropriate we will stop her Pitocin and proceed with about 430 today June 27, 2021 Patient is without complaint. She is ambulating, voiding, tolerating oral intake well has good pain control. Vital Signs Date Time Temp Pulse Resp B/P (MAP) Pulse Ox O2 Delivery O2 Flow Rate FiO2 06/27/21 04:25 37.0 78 18 112/61 (78) 99 Room Air 06/27/21 00:35 36.6 92 18 108/62 (77) 98 Room Air 06/26/21 21:00 37.0 82 18 104/55 (71) 99 Room Air 06/26/21 18:47 Room Air 06/26/21 18:47 36.1 13 105/82 (90) 100 Room Air 06/26/21 18:36 36.0 18 97/80 (86) 100 Room Air 06/26/21 18:35 Room Air 06/26/21 18:27 36.1 16 102/69 (80) 100 Room Air 06/26/21 18:20 Room Air 06/26/21 18:10 36.1 14 102/47 (65) 100 Room Air 06/26/21 18:05 Room Air 06/26/21 17:54 35.9 18 107/66 (80) 100 Room Air 06/26/21 17:50 Room Air 06/26/21 16:40 36.4 89 18 126/77 (93) Room Air 06/26/21 16:20 78 18 106/69 (81) Room Air 06/26/21 16:05 81 18 106/63 (77) Room Air 06/26/21 15:50 68 18 110/67 (81) Room Air 06/26/21 15:36 87 18 103/62 (76) Room Air 06/26/21 15:24 36.5 93 18 102/68 (79) Room Air 06/26/21 15:05 85 18 103/60 (74) Room Air 06/26/21 14:50 36.7 82 18 108/61 (77) Room Air 06/26/21 13:51 70 18 119/73 (88) Room Air 06/26/21 13:36 84 18 133/88 (103) Room Air 06/26/21 13:21 85 18 130/86 (101) Room Air 06/26/21 13:05 36.0 77 18 129/77 (94) Room Air 06/26/21 12:50 75 18 128/71 (90) Room Air 06/26/21 12:20 84 18 112/71 (85) Room Air 06/26/21 11:51 80 18 136/86 (103) Room Air 06/26/21 11:36 70 18 137/85 (102) Room Air 06/26/21 11:22 80 18 125/70 (88) Room Air 06/26/21 10:50 83 18 111/66 (81) Room Air 06/26/21 10:42 91 18 112/63 (79) Room Air 06/26/21 10:20 82 18 115/80 (92) Room Air 06/26/21 10:16 36.1 06/26/21 10:06 87 18 112/71 (85) Room Air 06/26/21 09:52 76 18 118/69 (85) Room Air 06/26/21 09:36 96 18 125/73 (90) Room Air 06/26/21 09:21 85 18 131/73 (92) Room Air 06/26/21 09:05 81 18 121/71 (88) Room Air 06/26/21 08:51 81 18 120/80 (93) Room Air 06/26/21 08:34 36.4 88 18 122/76 (91) Room Air 06/26/21 08:33 36.4 88 18 100 Room Air I & O 06/27/21 07:00 Intake Total 910 ml Output Total 550 ml Balance 360 ml Vital signs are stable. Patient is afebrile. The abdomen is benign. The surgical incision is clean dry and intact. Extremities show no clubbing cyanosis. There is no Homans' sign. Assessment and plan Postoperative day #1 status post primary delivery at 38 weeks gestation due to failure to progress. Patient is doing well and will have routine convalescent care June 28, 2021 Patient is without complaint. She is ambulating, voiding, tolerating oral intake well has good pain control. Vital Signs Date Time Temp Pulse Resp B/P (MAP) Pulse Ox O2 Delivery O2 Flow Rate FiO2 06/28/21 04:44 36.7 94 18 114/72 (86) 98 Room Air 06/27/21 21:11 36.6 79 18 113/59 (77) 98 Room Air 06/27/21 16:02 36.7 78 18 110/63 (79) 98 Room Air 06/27/21 14:16 36.7 73 17 109/56 (73) 98 06/27/21 10:00 36.8 85 18 108/65 (79) 96 Room Air Vital signs are stable. Patient is afebrile. Fundus is firm below the umbilicus and nontender. The incision is clean dry and intact. Extremities show no clubbing cyanosis. There is no Homans' sign. Assessment and plan Postoperative day #2 status post primary delivery at 38 weeks gestati on. Plan is for discharge home with follow-up in clinic Final Diagnosis 38-week primary delivery JOAQUIN SANTOS MD Jun 28, 2021 08:25
[2021-06-28 12:00] VITALS: BP 124/74
[2021-07-01] MEDS ORDERED: IBUPROFEN 800 MG (MOTRIN) TAB PO SCH (19:30)
== END 2021-06-28 12:10 | disposition home or self-care (01) | DRG 788 ==
LOC: LDRP 07:00
PROVIDERS: ADMIT Obstetrics & Gynecology; ATTEND Obstetrics & Gynecology
PROC: 3E033VJ Introduction of Other Hormone into Peripheral Vein, Percutaneous Approach (ICD-10-PCS; 2021-06-26)
PROC: 10D00Z1 Extraction of Products of Conception, Low, Open Approach (ICD-10-PCS; principal; 2021-06-26 17:03)
DX: O24.429 Gestational diabetes mellitus in childbirth, unspecified control (principal); O61.0 Failed medical induction of labor; Z3A.38 38 weeks gestation of pregnancy; Z37.0 Single live birth
CPT/HCPCS: 36415; 82947; 83033; 85025; 86850; 86900; 86901; 94664

== ENCOUNTER 2021-07-16 02:44 | Emergency (ER) | payer MEDICAID ==
[~2021-07-16] VITALS: Ht 160 cm; Wt 87.0 kg
[~2021-07-16 02:44] MED LIST changes: +DOCU-239 PO; +IBUP-1780 PO; +OXYC1TAB12 PO; +PEDI1TAB35 PO
--- OUTSIDE RECORDS SUMMARY | 2021-07-16 02:50 | XMS REPORT ---
Author Author [facility] Address Unknown Phone Unavailable Care Team Providers Care [employer] Operator Name Role Phone CARLINEPATEL Unavailable PROBLEMS No Information ALLERGIES No Known Allergies ENCOUNTERS from 1991 to 2021-06-28 Encounter Location Date Provider Diagnosis [facility] [address] [facility] [id number] [place] [address] Nov, PATEL CROWLEY IMMUNIZATIONS Vaccine Route Administration Date [...] End Date [address] [facility] [id number] Karin Silva self
--- NOTE | 2021-07-16 03:11 | ED Abdominal Pain ---
General Stated Complaint: VOMITING,UPPER ABD PAIN,19 DAYS Source of Information: Patient Exam Limitations: No Limitations History of Present Illness Date Seen by Provider: Jul 16, 2021 Time Seen by Provider: 02:56 Initial Comments Patient to the ER by private conveyance with chief complaint that about an hour prior to arrival she was awoken from her sleep with a severe, unrelenting sharp colicky pain across the top of her abdomen. She had an episode of vomiting and after she sat down her pain went away by time she arrived here. She did not take anything for the pain. She denies any nausea. She is 19 days by for failure to progress by Dr. Girard. G1, P1. No dysuria discharge. Small amount of intermittent lochia rubra. No fevers or chills. No other abdominal surgeries or medical history. She is not taking any medicines including vitamins. Her bowels have been regular. Allergies and Home Medications Allergies Coded Allergies: No Known Drug Allergies (Unverified , 02/24/19) Patient Home Medication List Home Medication List Reviewed: Yes Docusate Sodium (Dok) 100 Mg Capsule, 100 MG PO BID Prescribed by: JOAQUIN MORLEY on 06/27/21 08 Ibuprofen (Ibuprofen) 800 Mg Tablet, 800 MG PO Q6H Prescribed by: JOAQUIN MORLEY on 06/27/21 08 Oxycodone HCl/Acetaminophen (Percocet 10-325 mg Tablet) 1 Each Tablet, 1 TAB PO Q4HR PRN for Pain Prescribed by: JOAQUIN MORLEY on 06/27/21 08 Pediatric Multivit Comb. No.49 (Flintstones Gummies) 1 Each Tab.chew, 1 EACH PO DAILY, (Reported) Entered as Reported by: MARBIN SINGH on 06/26/21 1304 Review of Systems Review of Systems Constitutional: No chills, No diaphoresis EENTM: No Blurred Vision, No Double Vision Respiratory: Denies Cough, Denies Shortness of Air Cardiovascular: Denies Chest Pain, Denies Lightheadedness Gastrointestinal: See HPI, Abdominal Pain; Denies Constipated, Denies Diarrhea Genitourinary: Denies Burning, Denies Discharge Musculoskeletal: No back pain, No joint pain All Other Systems Reviewed Negative Unless Noted: Yes Past Loaaggq-Vnhoyv-Vermxq Hx Patient Social History Tobacco Use?: No Use of E-Cig and/or Vaping dev: No Substance use?: No Alcohol Use?: No Immunizations Up To Date Tetanus Booster (TDap): Less than 5yrs First/Initial COVID19 Vaccinat: 2020 Seasonal Allergies Seasonal Allergies: Yes Past Medical History Surgeries: Yes Breast, Orthopedic Respiratory: No Cardiac: No Neurological: No Female Reproductive Disorders: Denies Sexually Transmitted Disease: No HIV/AIDS: No Gastrointestinal: No Musculoskeletal: No Endocrine: No Cancer: No Psychosocial: No Integumentary: No Blood Disorders: No Physical Exam Vital Signs Vital Signs - First Documented 07/16/21 02:55 Temp 36.6 Pulse 80 Resp 16 B/P (MAP) 125/88 (100) Pulse Ox 99 O2 Delivery Room Air Capillary Refill : Height/Weight/BMI Height: 5'4.00" Weight: 200lbs. oz. 90.786648dk; 37.57 BMI Method:Stated General Appearance: WD/WN, no apparent distress HEENT: PERRL/EOMI, pharynx normal Neck: full range of motion, supple, normal inspection Respiratory: lungs clear, normal breath sounds, no respiratory distress, no accessory muscle use Cardiovascular: normal peripheral pulses, regular rate, rhythm Gastrointestinal: normal bowel sounds, non tender, soft, no organomegaly, other (Negative for Reyes sign, McBurney's point tenderness, Rovsing sign or mesenteric signs) Extremities: normal range of motion, non-tender, normal capillary refill Neurologic/Psychiatric: alert, normal mood/affect, oriented x 3 Skin: normal color, warm/dry Progress/Results/Core Measures Results/Orders Lab Results Laboratory Tests Test 07/16/21 03:20 Range/Units White Blood Count 8.4 4.3-11.0 10^3/uL Red Blood Count 4.03 3.80-5.11 10^6/uL Hemoglobin 11.2 L 11.5-16.0 g/dL Hematocrit 35 35-52 % Mean Corpuscular Volume 87 80-99 fL Mean Corpuscular Hemoglobin 28 25-34 pg Mean Corpuscular Hemoglobin Concent 32 32-36 g/dL Red Cell Distribution Width 13.0 10.0-14.5 % Platelet Count 321 130-400 10^3/uL Mean Platelet Volume 10.9 9.0-12.2 fL Immature Granulocyte % (Auto) 0 % Neutrophils (%) (Auto) 56 42-75 % Lymphocytes (%) (Auto) 33 12-44 % Monocytes (%) (Auto) 6 0-12 % Eosinophils (%) (Auto) 4 0-10 % Basophils (%) (Auto) 1 0-10 % Neutrophils # (Auto) 4.7 1.8-7.8 10^3/uL Lymphocytes # (Auto) 2.8 1.0-4.0 10^3/uL Monocytes # (Auto) 0.5 0.0-1.0 10^3/uL Eosinophils # (Auto) 0.3 0.0-0.3 10^3/uL Basophils # (Auto) 0.1 0.0-0.1 10^3/uL Immature Granulocyte # (Auto) 0.0 0.0-0.1 10^3/uL Sodium Level 139 135-145 MMOL/L Potassium Level 3.7 3.6-5.0 MMOL/L Chloride Level 105 98-107 MMOL/L Carbon Dioxide Level 22 21-32 MMOL/L Anion Gap 12 5-14 MMOL/L Blood Urea Nitrogen 6 L 7-18 MG/DL Creatinine 0.67 0.60-1.30 MG/DL Estimat Glomerular Filtration Rate 103 BUN/Creatinine Ratio 9 Glucose Level 111 H 70-105 MG/DL Calcium Level 9.2 8.5-10.1 MG/DL Corrected Calcium 9.3 8.5-10.1 MG/DL Total Bilirubin 0.2 0.1-1.0 MG/DL Aspartate Amino Transf (AST/SGOT) 19 5-34 U/L Alanine Aminotransferase (ALT/SGPT) 25 0-55 U/L Alkaline Phosphatase 110 40-136 U/L C-Reactive Protein High Sensitivity 0.24 0.00-0.50 MG/DL Total Protein 7.0 6.4-8.2 GM/DL Albumin 3.9 3.2-4.5 GM/DL Lipase 27 8-78 U/L My Orders Orders - RUDY PARR Ed Iv/Invasive Line Start (07/16/21 03:04) Ns Iv 1000 Ml (Sodium Chloride 0.9%) (07/16/21 03:15) Famotidine Injection (Pepcid Injection) (07/16/21 03:15) Ondansetron Injection (Zofran Injectio (07/16/21 03:15) Cbc With Automated Diff (07/16/21 03:04) Comprehensive Metabolic Panel (07/16/21 03:04) Hs C Reactive Protein (07/16/21 03:04) Lipase (07/16/21 03:04) Fentanyl Inj (Sublimaze Injection) (07/16/21 04:00) Medications Given in ED Current Medications Medications Dose Ordered Sig/Sheila Route Start Time Stop Time Status Last Admin Dose Admin Famotidine 20 mg ONCE ONCE IVP 07/16/21 03:15 07/16/21 03:16 DC 07/16/21 03:23 20 MG Fentanyl Citrate 50 mcg ONCE ONCE IVP 07/16/21 04:00 07/16/21 04:02 DC 07/16/21 03:56 50 MCG Ondansetron HCl 8 mg ONCE ONCE IVP 07/16/21 03:15 07/16/21 03:16 DC 07/16/21 03:23 8 MG Vital Signs/I&O 07/16/21 02:55 Temp 36.6 Pulse 80 Resp 16 B/P (MAP) 125/88 (100) Pulse Ox 99 O2 Delivery Room Air Progress Progress Note : Time: 03:10 Progress Note Colicky abdominal pain, pancreatitis, gallbladder, gallstones, PUD, colitis? Still having any stool symptoms. We will give her some Zofran, fluids and get some labs. If there is any evidence of derangement will get a CT if not then we will set her up for ultrasound during the day. She is pain-free at this time Departure Impression Primary Impression: Biliary colic symptom Disposition: 01 HOME, SELF-CARE Condition: Stable Departure-Patient Inst. Decision time for Depature: 04:28 Referrals: MARGUERITE FAYE DO NO,LOCAL PHYSICIAN (PCP) Primary Care Physician Patient Instructions: Acute Pain, Adult (DC), Gallstones Add. Discharge Instructions: I suspect you may have biliary colic caused by inflammation of the gallbladder or gallbladder stones. Other possibilities include peptic ulcer disease, gastr itis etc. This can be worked up with an ultrasound of your right upper quadrant abdomen later this week and followed up with Dr. Faye, general surgery to further work-up and manage your symptoms. Avoid spicy, greasy, acid inducing foods especially dairy. Omeprazole 20 mg twice a day to reduce the acid in your stomach. You may use antacids such as Maalox, Rolaids, Tums etc. as necessary for breakthrough pain. Tylenol 1000 mg every 8 hours as necessary for pain. Hydrocodone 1 tablet every 6 hours as necessary for severe breakthrough pain. Zofran 1 tablet under the tongue every 6 hours as necessary for nausea and/or vomiting. Return to the ER promptly for intractable pain, nausea or fever above 102.5. Call Dr. Faye's office and request follow-up appointment after your ultrasound is set up. Call the number on the top of the ultrasound order sheet to set up your ultrasound. Scripts Omeprazole (Omeprazole) 20 Mg Tablet. 20 MG PO BID for 30 Days, #60 TAB 0 Refills Prov: RUDY PARR 07/16/21 Ondansetron (Ondansetron Odt) 4 Mg Tab.rapdis 4 MG PO Q6H PRN for NAUSEA/VOMITING, #15 TAB 0 Refills Prov: RUDY PARR 07/16/21 Hydrocodone/Acetaminophen (Hydrocodone-Acetamin 5-325 mg) 1 Each Tablet 1 TAB PO Q6H PRN for PAIN-MODERATE (5-7), #15 TAB 0 Refills Prov: RUDY PARR 07/16/21 Copy Copies To 1: MARGUERITE FAYE DO RUDY PARR Jul 16, 2021 03:11
[2021-07-16] MEDS ORDERED: FAMOTIDINE 20MG/2ML IV (PEPCID) IVP ONE (03:15)
[2021-07-16] MEDS ORDERED: ONDANSETRON 4 MG/2 ML (SDV) Z0FRAN IVP ONE (03:15)
[2021-07-16] MEDS ORDERED: NS IV 1000 ML 1,000 ML IV SCH (03:15)
[2021-07-16 03:40] LABS: BASOPHILS # (AUTO) 0.1 10^3/uL (0.0-0.1); BASOPHILS % (AUTO) 1 % (0-10); EOSINOPHILS # (AUTO) 0.3 10^3/uL (0.0-0.3); EOSINOPHILS % (AUTO) 4 % (0-10); HEMATOCRIT 35 % (35-52); HEMOGLOBIN 11.2 g/dL (11.5-16.0); LYMPHOCYTES # (AUTO) 2.8 10^3/uL (1.0-4.0); LYMPHOCYTES % (AUTO) 33 % (12-44); MEAN CORPUSCULAR HEMOGLOBIN 28 pg (25-34); MEAN CORPUSCULAR HGB CONC 32 g/dL (32-36); MEAN CORPUSCULAR VOLUME 87 fL (80-99); MEAN PLATELET VOLUME 10.9 fL (9.0-12.2); MONOCYTES # (AUTO) 0.5 10^3/uL (0.0-1.0); MONOCYTES % (AUTO) 6 % (0-12); NEUTROPHILS # (AUTO) 4.7 10^3/uL (1.8-7.8); NEUTROPHILS % (AUTO) 56 % (42-75); PLATELET COUNT 321 10^3/uL (130-400); WHITE BLOOD COUNT 8.4 10^3/uL (4.3-11.0)
[2021-07-16 03:55] LABS: ALBUMIN 3.9 GM/DL (3.2-4.5); POTASSIUM 3.7 MMOL/L (3.6-5.0)
[2021-07-16 03:57] LABS: CALCIUM 9.2 MG/DL (8.5-10.1)
[2021-07-16 04:00] LABS: BILIRUBIN,TOTAL 0.2 MG/DL (0.1-1.0)
[2021-07-16] MEDS ORDERED: fentaNYL INJ 100 MCG/2 ML AMP IVP ONE (04:00)
[2021-07-16 04:02] LABS: CREATININE SERUM 0.67 MG/DL (0.60-1.30)
[2021-07-16] MEDS ORDERED: OMEP20TA7 PO (04:32)
[2021-07-16] MEDS ORDERED: ACHD5005 PO (04:32)
[2021-07-16] MEDS ORDERED: ONDA4TAB11 PO (04:32)
[2021-07-16] MEDS ORDERED: RX-ONDANSETRON 4 MG ODT (ZOFRAN) PPK #4 PO STA (04:34)
[2021-07-16 04:49] VITALS: BP 91/64
== END 2021-07-16 04:49 | disposition home or self-care (01) ==
LOC: EDUNIT# 02:44 → ER 02:47
DX: K80.50 Calculus of bile duct without cholangitis or cholecystitis without obstruction (principal)
CPT/HCPCS: 36415; 80053; 83690; 85025; 86141

== ENCOUNTER 2022-05-22 00:21 | Emergency (ER) | payer MEDICAID ==
[~2022-05-22] VITALS: Ht 162.5 cm; Wt 81.3 kg
[~2022-05-22 00:21] MED LIST changes: +CYCL10TA25 PO; -CYCL10TA9 PO; +OMEP20TA56 PO; +ONDA4TAB11 PO
[2022-05-22] MEDS ORDERED: methylPREDNISolone 125 MG (Solu-MEDROL) VIAL IV STA (00:31)
[2022-05-22] MEDS ORDERED: RT-ALBUTEROL/IPRATROPIUM 3 ML (DUONEB) VIAL ONE (00:34)
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
[2022-05-22] MEDS ORDERED: RT-ALBUTEROL/IPRATROPIUM 3 ML (DUONEB) VIAL INH ONE (00:45)
[2022-05-22 00:52] LABS: BASOPHILS # (AUTO) 0.1 10^3/uL (0.0-0.1); BASOPHILS % (AUTO) 1 % (0-10); EOSINOPHILS # (AUTO) 0.3 10^3/uL (0.0-0.3); EOSINOPHILS % (AUTO) 3 % (0-10); HEMATOCRIT 39 % (35-52); HEMOGLOBIN 13.4 g/dL (11.5-16.0); LYMPHOCYTES # (AUTO) 3.9 10^3/uL (1.0-4.0); LYMPHOCYTES % (AUTO) 38 % (12-44); MEAN CORPUSCULAR HEMOGLOBIN 29 pg (25-34); MEAN CORPUSCULAR HGB CONC 34 g/dL (32-36); MEAN CORPUSCULAR VOLUME 84 fL (80-99); MEAN PLATELET VOLUME 10.6 fL (9.0-12.2); MONOCYTES # (AUTO) 0.6 10^3/uL (0.0-1.0); MONOCYTES % (AUTO) 6 % (0-12); NEUTROPHILS # (AUTO) 5.3 10^3/uL (1.8-7.8); NEUTROPHILS % (AUTO) 52 % (42-75); PLATELET COUNT 222 10^3/uL (130-400); WHITE BLOOD COUNT 10.1 10^3/uL (4.3-11.0)
[2022-05-22 01:02] LABS: ALBUMIN 4.1 GM/DL (3.2-4.5)
[2022-05-22 01:03] LABS: POTASSIUM 3.6 MMOL/L (3.6-5.0)
[2022-05-22 01:04] LABS: CALCIUM 9.1 MG/DL (8.5-10.1)
[2022-05-22 01:05] LABS: TOTAL PROTEIN 7.2 GM/DL (6.4-8.2)
[2022-05-22 01:07] LABS: BILIRUBIN,TOTAL 0.3 MG/DL (0.1-1.0)
[2022-05-22 01:09] LABS: CREATININE SERUM 0.69 MG/DL (0.60-1.30)
[2022-05-22 04:07] VITALS: BP 116/73
[2022-05-22] MEDS ORDERED: PRD20T PO (04:07)
[2022-05-22] MEDS ORDERED: predniSONE 20 MG TAB PO ONE (04:15)
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
== END 2022-05-22 04:22 | disposition home or self-care (01) ==
LOC: EDUNIT# 00:21 → ER 00:22
DX: T59.811A Toxic effect of smoke, accidental (unintentional), initial encounter (principal); R79.81 Abnormal blood-gas level; F17.210 Nicotine dependence, cigarettes, uncomplicated
CPT/HCPCS: 36415; 36600; 71045; 80053; 82375; 82805; 84703; 85025; 93041